=== PATIENT | female | born 1995 | race Two or more races ===

== ENCOUNTER 2024-06-03 11:09 | Emergency (ER) | payer OTHER ==
[~2024-06-03] VITALS: Ht 157.5 cm; Wt 70.0 kg
[2024-06-03 15:11] VITALS: TEMP 98.1
[2024-06-03 18:27] VITALS: BP 116/70; PULSE 74; RESP 16
== END 2024-06-03 19:12 | disposition home or self-care (01) ==
LOC: EMS 11:11
DX: T19.2XXA Foreign body in vulva and vagina, initial encounter (principal); W44.E4XA Non-magnetic metal jewelry entering into or through a natural orifice, initial encounter
CPT/HCPCS: 72170; 99285; Z7502